=== PATIENT | male | born 1995 ===

== ENCOUNTER 2022-03-01 11:40 | Emergency (ER) | payer SELFPAY ==
--- NOTE | 2022-03-01 14:01 | XRay Report ---
CHEST 2 VIEWS INDICATION: chest pain. COMPARISON: None FINDINGS: SUPPORT DEVICES: None. HEART: Within normal limits. LUNGS/PLEURA: No acute air space or interstitial disease. No pneumothorax. ADDITIONAL FINDINGS: None. IMPRESSION: 1. No acute findings. Signer Name: Nikolas Preciado MD Signed: 03/01/2022 1:57 PM Workstation Name: [id number]
[2022-03-01 14:13] LABS: Hematocrit 45.8 % (35.5-45.6); Hemoglobin 15.7 gm/dl (11.8-15.2); Mean Corpuscular HGB Conc 34 % (32-34); Mean Corpuscular Volume 87 fl (84-94); Platelet Count 230 K/mm3 (140-440); Red Blood Count 5.29 M/mm3 (3.65-5.03); Red Cell Distribution Width 13.5 % (13.2-15.2)
[2022-03-01 14:30] LABS: Alanine Aminotransferase 47 units/L (7-56); Albumin 4.9 g/dL (3.9-5); BUN/Creatinine Ratio 11; Blood Urea Nitrogen 10 mg/dL (9-20); Calcium 9.5 mg/dL (8.4-10.2); Hemolysis Index 7
--- NOTE | 2022-03-01 14:41 | Emergency Department Report ---
ED Chest Pain HPI - General Chief Complaint: Dyspnea/Respdistress Stated Complaint: CHEST PAIN Time Seen by Provider: 03/01/22 13:09 Source: patient Mode of arrival: Ambulatory Limitations: No Limitations - History of Present Illness Initial Comments: 26-year-old male with no past medical history but positive family history of CAD presents to the emergency department for evaluation of 4-day history of chest pain and shortness of breath. He states that he has had left lower chest pain for 4 days that gets worse when he takes a deep breath along with some intermittent dizziness. He states that he is only short of breath when he has that sharp pain in his chest. He states that pain is 5 out of 10, intermittent, nonradiating, and nonreproducible. He denies nausea, vomiting, fever, and diaphoresis. MD Complaint: chest pain -: Gradual, days(s) (For) Onset: during rest Pain Location: left chest Pain Radiation: none Severity: moderate Severity scale (0 -10): 5 Quality: sharp Consistency: intermittent Worsens With: inspiration re: denies: nausea, vomting, diaphoresis, dyspnea, sense of impending doom Other Symptoms: denies: cough, fever, syncope, rash, acid taste in mouth, leg swelling, palpitations, burping Treatments Prior to Arrival: none Aspirin use within the Past 7 Days: (0) No - Related Data Home Medications Medication Instructions Recorded Confirmed Last Taken No Known Home Medications [No 03/01/22 03/01/22 Unknown Reported Home Medications] Allergies Allergy/AdvReac Type Severity Reaction Status Date / Time No Known Allergies Allergy Verified 03/01/22 11:57 Heart Score - HEART Score History: Slightly suspicious EKG: Normal Age: < 45 Risk factors: 1-2 risk factors Troponin: < normal limit HEART Score: 1 - EKG Read Time Time EKG Completed: 13:17 EKG Read Time: 13:23 - Critical Actions Critical Actions: 0-3 pts:0.9-1.7%risk of adverse cardiac event.Candidate for discharge ED Review of Systems ROS: Stated complaint: CHEST PAIN Other details as noted in HPI Comment: All other systems reviewed and negative Constitutional: denies: chills, fever Respiratory: shortness of breath. denies: cough, SOB with exertion, SOB at rest, wheezing Cardiovascular: chest pain. denies: palpitations, dyspnea on exertion, orthopnea, edema, syncope, paroxysmal nocturnal dyspnea Gastrointestinal: denies: abdominal pain, nausea, vomiting, diarrhea, hematemesis, melena, hematochezia Genitourinary: denies: urgency, dysuria, frequency, hematuria, discharge, testicular pain Musculoskeletal: denies: back pain Skin: denies: rash, lesions Neurological: denies: headache, weakness ED Past Medical Hx - Medications Home Medications: Home Medications Medication Instructions Recorded Confirmed Last Taken Type No Known Home Medications [No 03/01/22 03/01/22 Unknown History Reported Home Medications] ED Physical Exam - General Limitations: No Limitations General appearance: alert, in no apparent distress - Head Head exam: Present: atraumatic, normocephalic - Eye Eye exam: Present: normal appearance. Absent: conjunctival injection - Neck Neck exam: Present: normal inspection, full ROM. Absent: lymphadenopathy - Respiratory Respiratory exam: Present: normal lung sounds bilaterally. Absent: respiratory distress, wheezes, rales, rhonchi, stridor, chest wall tenderness - Cardiovascular Cardiovascular Exam: Present: regular rate, normal rhythm, normal heart sounds - GI/Abdominal GI/Abdominal exam: Present: soft, normal bowel sounds. Absent: distended, tenderness, guarding, rebound, rigid - Extremities Exam Extremities exam: Present: normal inspection, full ROM, normal capillary refill. Absent: tenderness, pedal edema, joint swelling, calf tenderness - Back Exam Back exam: Present: normal inspection. Absent: CVA tenderness (R), CVA t enderness (L) - Neurological Exam Neurological exam: Present: alert, oriented X3, normal gait - Psychiatric Psychiatric exam: Present: normal affect, normal mood - Skin Skin exam: Present: warm, dry, intact, normal color ED Course Vital Signs 03/01/22 03/01/22 11:57 15:26 Temperature 98.9 F 99 F Pulse Rate 68 68 Respiratory 16 18 Rate Blood Pressure 143/82 127/93 [Left] O2 Sat by Pulse 100 99 Oximetry ED Medical Decision Making - Lab Data Result diagrams: 03/01/22 13:52 03/01/22 13:52 - EKG Data Interpretation: no acute changes, normal EKG - Radiology Data Radiology results: report reviewed, image reviewed Chest x-ray: FINDINGS: SUPPORT DEVICES: None. HEART: Within normal limits. LUNGS/PLEURA: No acute air space or interstitial disease. No pneumothorax. ADDITIONAL FINDINGS: None. IMPRESSION: 1. No acute findings. - Medical Decision Making 26-year-old male with no past medical history but positive family history of CAD presents to the emergency department for evaluation of 4-day history of chest pain and shortness of breath. He states that he has had left lower chest pain for 4 days that gets worse when he takes a deep breath along with some intermittent dizziness. He states that he is only short of breath when he has that sharp pain in his chest. He states that pain is 5 out of 10, intermittent, nonradiating, and nonreproducible. He denies nausea, vomiting, fever, and diaphoresis. Note acute abnormalities noted on exam. EKG without any acute ischemic changes and chest x-ray within normal limits. Patient denies chest pain at this time. Troponin within normal limits. Heart score of 1, and low suspicion for CAD. Patient will be discharged home to follow-up with cardiology for further evaluation and management. He is advised to return to the emergency department for any concerning symptoms. He verbalizes understanding of and agreement with plan of care. - Differential Diagnosis PA, GERD, costochondritis, angina Critical care attestation.: If time is entered above; I have spent that time in minutes in the direct care of this critically ill patient, excluding procedure time. ED Disposition Clinical Impression: Chest pain Qualifiers: Chest pain type: unspecified Qualified Code(s): R07.9 - Chest pain, unspecified Disposition: 01 HOME / SELF CARE / HOMELESS Is pt being admited?: No Does the pt Need Aspirin: No Condition: Stable Instructions: Nonspecific Chest Pain, Adult Additional Instructions: Follow-up with cardiology for further evaluation and management. Return to the emergency department as needed. Referrals: COREY ROCA MD [Staff Physician] - 3-5 Days CELESTINO HURLEY MD [Staff Physician] - 3-5 Days Forms: Work/School Release Form(ED)
[2022-03-01 15:27] VITALS: BP 127/93
--- NOTE | 2022-03-01 18:15 | Electrocardiograph Report ---
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
== END 2022-03-01 15:26 | disposition home or self-care (01) ==
LOC: ED 11:40
DX: R07.89 Other chest pain (principal); R06.02 Shortness of breath; Z79.899 Other long term (current) drug therapy
CPT/HCPCS: 36415; 71046; 80053; 84484; 85027; 93005; 99283